=== PATIENT | female | born 1990 | race Caucasian/White ===

== ENCOUNTER → 2020-09-27 | Outpatient (CLI) | payer OTHER ==
--- NOTE | 2020-09-27 15:31 | XR ---
EXAMINATION TYPE: XR tibia fibula LT DATE OF EXAM: 09/27/2020 CLINICAL HISTORY: Fall injury today with pain. TECHNIQUE: Two views of the left leg are obtained. COMPARISON: None. FINDINGS: There is no acute fracture or dislocation seen in the left tibia or fibula. The knee and ankle joints appear within normal limits. Diffuse soft tissue prominence with mild/moderate subcutane ous edema noted. IMPRESSION: There is no acute fracture or dislocation seen in the left tibia or fibula.
== END | disposition home or self-care (01) ==
LOC: RADXRMAIN 14:19
PROVIDERS: ATTEND Emergency Medicine
DX: S80.02XA Contusion of left knee, initial encounter (principal); S80.12XA Contusion of left lower leg, initial encounter